=== PATIENT | female | born 1985 | race Caucasian/White ===

== ENCOUNTER 2020-05-17 17:23 | Emergency (ER) | payer MEDICAID ==
[2020-05-17] MEDS ORDERED: Sodium Chloride 0.9% 10 ML Syringe FLUSH PRN (18:29)
[2020-05-17] MEDS ORDERED: Sodium Chloride 0.9% 2.5 ML Syringe FLUSH PRN (18:29)
[2020-05-17] MEDS ORDERED: Sodium Chloride 0.9% 1,000 ML IV ONE (18:29)
[2020-05-17] MEDS ORDERED: Ketorolac 15 MG/ML SDV IVPUSH ONE (18:29)
[2020-05-17] MEDS ORDERED: Ketorolac 30 MG/ML SDV ONE (18:52)
[2020-05-17] MEDS ORDERED: Ketorolac 30 MG/ML SDV IVPUSH STA (18:53)
--- NOTE | 2020-05-17 18:57 | CR ---
Indication: Sore throat. Fever. Technique: AP portable view of the chest. Comparison: None Findings: The heart is normal in size. The lungs are clear. No infiltrate, pleural effusion, or pneumothorax is identified. Impression: No acute cardiopulmonary process Dictated by Rossy Butler MD @ May 17 2020 6:53PM Signed by Dr. Rossy Butler @ May 17 2020 6:56PM
[2020-05-17 19:01] LABS: BLOOD UREA NITROGEN,BUN 13 mg/dL (7.0-18.0); CARBON DIOXIDE,CO2 29.5 mmol/L (21.0-32.0); CHLORIDE,CL 104 mmol/L (98-107); GLUCOSE RANDOM 85 mg/dL (74-106); POTASSIUM,K 3.8 mmol/L (3.5-5.1); SODIUM,NA 140 mmol/L (136-145)
--- NOTE | 2020-05-17 19:43 | EDM.PDOC ---
ED HPI GENERAL MEDICAL PROBLEM - General Chief Complaint: Fever Stated Complaint: NOT FEELING WELL Time Seen by Provider: 05/17/20 18:27 - History of Present Illness INITIAL COMMENTS - FREE TEXT/NARRATIVE: HISTORY AND PHYSICAL: History of present illness: This is a 35-year-old female with no significant past medical history who presents ER today secondary to generalized malaise, body aches, fevers, green productive cough, decreased appetite, loss of taste and smell x2 to 3 days. Patient reports that she has been tolerating p.o. liquid without difficulty. Patient denies any vomiting or diarrhea. Patient denies any pain in her abdomen chest or back. Patient denies any flank tenderness. Patient has any dysuria, frequency, urgency. Patient has a hematuria. Patient has not hemoptysis. Review of systems: As per history of present illness and below otherwise all systems reviewed and negative. Past medical history: As per history of present illness and as reviewed below otherwise noncontributory. Surgical history: As per history of present illness and as reviewed below otherwise noncontributory. Social history: No reported history of drug or alcohol abuse. Family history: As per history of present illness and as reviewed below otherwise noncontributory. Physical exam: Constitutional: Patient is oriented to person, place, and time. Appears well- developed and well-nourished. No distress. HEENT: Moist mucous membranes, neck supple, no nuchal rigidity, no photophobia, no Kernig's sign or Brudzinski sign, patient does not present with signs or symptoms of be consistent with meningitis. Oropharynx clear without any exudates erythema Head: Normocephalic and atraumatic Eyes: Right eye exhibits no discharge. Left eye exhibits no discharge. No scleral icterus Neck: Normal range of motion. No tracheal deviation present. Cardiovascular: Normal rate and regular rhythm. Pulmonary: Effort normal, no respiratory distress. Abd: Soft, nondistended, no rebound/guarding, no psoas or obturator signs, no tenderness at Mcberney's point, no Aguirre's sign. Pt does not present with an exam that would be consistent with an acute surgical abdomen at this time, nontender to palpation Musculoskeletal: Normal range of motion Neurologic: Alert and oriented to person, place and time. Skin: Export, warm and dry. Psychiatric: Normal mood and affect. Behavior is normal. Judgment and thought content normal. Nursing note and vital signs have been reviewed Diagnostics: Chest Xray: Normal cardiac silhouette No infiltrates or effusions identified. No PTX No evidence of acute bony fracture. 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 Patient's chest x-ray does not reveal any acute pathology. Patient's pulse ox is 98% on room air. Patient's coronavirus test is pending. Patient is nontoxic-appearing with normal vital signs. Patient's coronavirus test is positive. Patient is clinically hemodynamically stable for discharge to home. Patient's pulse ox is 96 to 98% on room air. Patient do not appear to be in any resp iratory distress. I have discussed with the patient her test results and need for quarantine. 1. Your COVID-19 screening is positive. That means you do have the coronavirus and you are considered contagious. Your vital signs and oxygen saturation are well enough that you were able to monitor your symptoms at home. Continue to monitor for trouble breathing, new confusion or inability to arouse, bluish lips or face or any of the other symptoms we discussed -if this occurs please return to the emergency room. 2. Please self quarantine over the next 10 days. Inform any persons that you have been in contact with since you started becoming symptomatic that you have tested positive; they should be made aware and take the appropriate steps as needed. 3. You can take NyQuil during the evening to help get a restful night sleep. May alternate Tylenol and ibuprofen as needed for pain and fever management. 4. [facility] will be calling you and following up with you. The [place] COVID 19 Hotline phone number , They are open Monday - Monday 7am - 7pm. Follow up with your primary care provider for re-evaluation and re-testing after the 10 day quarantine and discuss when you should be seen. Definitive disposition and diagnosis as appropriate pending reevaluation and review of above. - Related Data Allergies Allergy/AdvReac Type Severity Reaction Status Date / Time No Known Allergies Allergy Verified 05/17/20 18:11 Home Meds: Home Meds Citalopram Hydrobromide [Celexa] 20 mg PO 05/17/20 [History] hydrOXYzine pamoate [Vistaril] 1 cap PO BEDTIME 05/17/20 [History] hydrOXYzine pamoate [Vistaril] 1 cap TID PRN 05/17/20 [History] Past Medical History - Past Health History Medical/Surgical History: Denies Medical/Surgical History - Infectious Disease History Infectious Disease History: Reports: Chicken Pox Other Infectious Disease History: Chicken pox as a child Social & Family History - Family History Family Medical History: Noncontributory - Tobacco Use Tobacco Use Status *Q: Never Tobacco User - Caffeine Use Caffeine Use: Reports: Coffee - Recreational Drug Use Recreational Drug Use: Yes Drug Use in Last 12 Months: Yes Recreational Drug Type: Reports: Marijuana/Hashish Recreational Drug Use Frequency: Rarely ED ROS GENERAL - Review of Systems Review Of Systems: See Below ED EXAM, GENERAL - Physical Exam Exam: See Below Course - Vital Signs Last Recorded V/S: Last Vital Signs Temp 97.5 F 05/17/20 18:16 Pulse 66 05/17/20 18:16 Resp 18 05/17/20 18:16 BP 109/70 05/17/20 18:16 Pulse Ox 96 05/17/20 18:16 - Orders/Labs/Meds Orders: Active Orders 24 hr Category Date Time Status CORONAVIRUS COVID-19 PCR PHL Stat Lab 05/17/20 19:15 Received Sodium Chloride 0.9% [Saline Flush] Med 05/17/20 18:29 Active 10 ml FLUSH ASDIRECTED PRN Sodium Chloride 0.9% [Saline Flush] Med 05/17/20 18:29 Active 2.5 ml FLUSH ASDIRECTED PRN Saline Lock Insert [OM.PC] Stat Oth 05/17/20 18:29 Ordered Medication Orders Sodium Chloride (Saline Flush) 10 ml FLUSH ASDIRECTED PRN PRN Reason: Keep Vein Open Sodium Chloride (Saline Flush) 2.5 ml FLUSH ASDIRECTED PRN PRN Reason: Keep Vein Open Labs: Laboratory Tests 05/17/20 05/17/20 05/17/20 Range/Units 18:36 18:36 18:36 WBC 3.15 L (4.0-11.0) K/uL RBC 4.50 (4.30-5.90) M/uL Hgb 13.1 (12.0-16.0) g/dL Hct 41.2 (36.0-46.0) % MCV 91.6 (80.0-98.0) fL MCH 29.1 (27.0-32.0) pg MCHC 31.8 (31.0-37.0) g/dL RDW Std Deviation 42.9 (28.0-62.0) fl RDW Coeff of Mary Jo 13 (11.0-15.0) % Plt Count 188 (150-400) K/uL MPV 9.10 (7.40-12.00) fL Neut % (Auto) 53.6 (48.0-80.0) % Lymph % (Auto) 38.4 (16.0-40.0) % [place] % (Auto) 6.7 (0.0-15.0) % Eos % (Auto) 1.0 (0.0-7.0) % Baso % (Auto) 0.3 (0.0-1.5) % Neut # (Auto) 1.7 (1.4-5.7) K/uL Lymph # (Auto) 1.2 (0.6-2.4) K/uL [place] # (Auto) 0.2 (0.0-0.8) K/uL Eos # (Auto) 0.0 (0.0-0.7) K/uL Baso # (Auto) 0.0 (0.0-0.1) K/uL Nucleated RBC % 0.0 /100WBC Nucleated RBCs # 0 K/uL Sodium 140 (136-145) mmol/L Potassium 3.8 (3.5-5.1) mmol/L Chloride 104 (98-107) mmol/L Carbon Dioxide 29.5 (21.0-32.0) mmol/L BUN 13 (7.0-18.0) mg/dL Creatinine 0.9 (0.6-1.0) mg/dL Est Cr Clr Drug Dosing 69.66 mL/min Estimated GFR (MDRD) > 60.0 ml/min Glucose 85 (74-106) mg/dL Calcium 8.9 (8.5-10.1) mg/dL Total Bilirubin 0.4 (0.2-1.0) mg/dL AST 17 (15-37) IU/L ALT 26 (14-63) IU/L Alkaline Phosphatase 75 (46-116) U/L Total Protein 7.8 (6.4-8.2) g/dL Albumin 3.9 (3.4-5.0) g/dL Globulin 3.9 (2.6-4.0) g/dL Albumin/Globulin Ratio 1.0 (0.9-1.6) HCG, Qual NEGATIVE (NEG) SARS CoV-2 RNA Rapid GORAN (NEGATIVE) 05/17/20 Range/Units 19:15 WBC (4.0-11.0) K/uL RBC (4.30-5.90) M/uL Hgb (12.0-16.0) g/dL Hct (36.0-46.0) % MCV (80.0-98.0) fL MCH (27.0-32.0) pg MCHC (31.0-37.0) g/dL RDW Std Deviation (28.0-62.0) fl RDW Coeff of Mary Jo (11.0-15.0) % Plt Count (150-400) K/uL MPV (7.40-12.00) fL Neut % (Auto) (48.0-80.0) % Lymph % (Auto) (16.0-40.0) % [place] % (Auto) (0.0-15.0) % Eos % (Auto) (0.0-7.0) % Baso % (Auto) (0.0-1.5) % Neut # (Auto) (1.4-5.7) K/uL Lymph # (Auto) (0.6-2.4) K/uL [place] # (Auto) (0.0-0.8) K/uL Eos # (Auto) (0.0-0.7) K/uL Baso # (Auto) (0.0-0.1) K/uL Nucleated RBC % /100WBC Nucleated RBCs # K/uL Sodium (136-145) mmol/L Potassium (3.5-5.1) mmol/L Chloride (98-107) mmol/L Carbon Dioxide (21.0-32.0) mmol/L BUN (7.0-18.0) mg/dL Creatinine (0.6-1.0) mg/dL Est Cr Clr Drug Dosing mL/min Estimated GFR (MDRD) ml/min Glucose (74-106) mg/dL Calcium (8.5-10.1) mg/dL Total Bilirubin (0.2-1.0) mg/dL AST (15-37) IU/L ALT (14-63) IU/L Alkaline Phosphatase (46-116) U/L Total Protein (6.4-8.2) g/dL Albumin (3.4-5.0) g/dL Globulin (2.6-4.0) g/dL Albumin/Globulin Ratio (0.9-1.6) HCG, Qual (NEG) SARS CoV-2 RNA Rapid GORAN POSITIVE H (NEGATIVE) Meds: Medications Generic Name Dose Route Start Last Admin Trade Name Freq PRN Reason Stop Dose Admin Sodium Chloride 10 ml 05/17/20 18:29 Saline Flush FLUSH ASDIRECTED PRN Keep Vein Open Sodium Chloride 2.5 ml 05/17/20 18:29 Saline Flush FLUSH ASDIRECTED PRN Keep Vein Open Discontinued Medications Generic Name Dose Route Start Last Admin Trade Name Freq PRN Reason Stop Dose Admin Sodium Chloride 1,000 mls @ 999 mls/hr 05/17/20 18:29 05/17/20 18:58 Normal Saline IV 05/17/20 19:29 999 mls/hr .Bolus ONE Administration Ketorolac Tromethamine 15 mg 05/17/20 18:29 05/17/20 19:03 Toradol IVPUSH 05/17/20 18:30 Not Given ONETIME ONE Ketorolac Tromethamine 15 mg 05/17/20 18:53 05/17/20 18:59 Toradol IVPUSH 05/17/20 18:54 15 mg STAT STA Administration Ketorolac Tromethamine Confirm 05/17/20 18:52 05/17/20 18:59 Toradol Administered 05/17/20 18:53 Not Given Dose 30 mg .ROUTE .STK-MED ONE Departure - Departure Time of Disposition: 19:58 Disposition: Home, Self-Care 01 Clinical Impression: 2019 novel coronavirus disease (COVID-19) - Discharge Information Instructions: COVID-19 Frequently Asked Questions, COVID-19, COVID-19: How to Protect Yourself and Others - [facility] [place] 2], Prevent the Spread of COVID-19 if You Are Sick - [facility] [place] 2] Referrals: Citlalli Oliver DO [Primary Care Provider] - Forms: ED Department Discharge Additional Instructions: Your seen and evaluated in the ER today secondary to symptoms are consistent with coronavirus. Your coronavirus test is positive. Your x-ray does not reveal any evidence of pneumonia. Your oxygen level is between 96 to 98% which is normal. 1. Your COVID-19 screening is positive. That means you do have the coronavirus and you are considered contagious. Your vital signs and oxygen saturation are well enough that you were able to monitor your symptoms at home. Continue to monitor for trouble breathing, new confusion or inability to arouse, bluish lips or face or any of the other symptoms we discussed -if this occurs please return to the emergency room. 2. Please self quarantine over the next 10 days. Inform any persons that you have been in contact with since you started becoming symptomatic that you have tested positive; they should be made aware and take the appropriate steps as needed. 3. You can take NyQuil during the evening to help get a restful night sleep. May alternate Tylenol and ibuprofen as needed for pain and fever management. 4. [facility] will be calling you and following up with you. The [place] COVID 19 Hotline phone number , They are open Monday - Monday 7am - 7pm. Follow up with your primary care provider for re-evaluation and re-testing after the 10 day quarantine and discuss when you should be seen. The following information is given to patients seen in the emergency department who are being discharged to home. This information is to outline your options for follow-up care. We provide all patients seen in our emergency department with a follow-up referral. The need for follow-up, as well as the timing and circumstances, are variable depending upon the specifics of your emergency department visit. If you don't have a primary care physician on staff, we will provide you with a referral. We always advise you to contact your personal physician following an emergency department visit to inform them of the circumstance of the visit and for follow-up with them and/or the need for any referrals to a consulting specialist. The emergency department will also refer you to a specialist when appropriate. This referral assures that you have the opportunity for follow-up care with a specialist. All of these measure are taken in an effort to provide you with optimal care, which includes your follow-up. Under all circumstances we always encourage you to contact your private physician who remains a resource for coordinating your care. When calling for follow-up care, please make the office aware that this follow-up is from your recent emergency room visit. If for any reason you are refused follow-up, please contact the [facility] Emergency Department at and asked to speak to the emergency department charge nurse. [facility] [address] [place] [id number] [address] [address] Sepsis Event Note (ED) - Evaluation Sepsis Screening Result: No Definite Risk - Focused Exam Vital Signs: Vital Signs Temp Pulse Resp BP Pulse Ox 05/17/20 18:16 97.5 F 66 18 109/70 96
== END 2020-05-17 20:21 | disposition home or self-care (01) ==
LOC: MERGE 17:23 → MW.ED 17:23
DX: U07.1 COVID-19 (principal)
CPT/HCPCS: 36415; 71045; 80053; 84703; 85025; 87635; 96374; 99283; J1885; J7030; U0002

== ENCOUNTER 2021-03-29 17:18 | Emergency (ER) | payer MEDICAID ==
--- NOTE | 2021-03-29 18:28 | EDM.PDOC ---
ED HPI GENERAL MEDICAL PROBLEM - General Chief Complaint: Back Pain or Injury Stated Complaint: NECK PAIN Time Seen by Provider: 03/29/21 17:27 Source of Information: Reports: Patient History Limitations: Reports: No Limitations - History of Present Illness INITIAL COMMENTS - FREE TEXT/NARRATIVE: HISTORY AND PHYSICAL: History of present illness: Patient is a 36-year-old female who presents emergency room today with concern of right neck muscle spasm that has been going on and off since December. Patient states that she first had this occur back in December after she rode on the am usement rides and states that she developed a right-sided neck muscle spasm and stiffness. Patient states that at that time, she went and got a formal massage and states that this did help her symptoms. Patient states that since then, she has continued to have random days of feeling like she "slept wrong "and states that the spasm comes back and continues. Patient denies any direct trauma or in jury to the area but states that she has pain with looking to the left but is able to look to the right completely without any issues. Patient states that she had tried to massage the area again, however, this time it was much more painful so was not able to tolerate the massage. Patient states that she has not taken anything for her symptoms. Patient states that she has a history of tubal ligation so does not believe to be . Patient states she noticed today that she also has a swollen lymph node of her neck and is unsure if this is related or not so came to the emergency room for further evaluation. Patient denies any other symptoms or concerns. Patient denies fever, chills, chest pain, shortness of breath, or cough. Denies headache, change in vision, syncope, or near syncope. Denies nausea, vomiting, abdominal pain, diarrhea, constipation, or dysuria. Has not noted any blood in urine or stool. Patient has been eating and drinking appropriately. Review of systems: As per history of present illness and below otherwise all systems reviewed and negative. Past medical history: As per history of present illness and as reviewed below otherwise noncontributory. Surgical history: As per history of present illness and as reviewed below otherwise noncontributory. Social history: See social history for further information Family history: As per history of present illness and as reviewed below otherwise noncontributory. Physical exam: General: Patient is alert, oriented, and in no acute distress. Patient sitting comfortably on exam table. Vitals stable and reviewed by me. HEENT: Patient does have a pea size mobile and tender lymph node of her right sided supraclavicular area. Otherwise, atraumatic, normocephalic, pupils equal and reactive bilaterally, negative for conjunctival pallor or scleral icterus, mucous membranes moist, TMs normal bilaterally, throat clear, neck supple, nontender, trachea midline. No drooling or trismus noted. No meningeal signs. No hot potato voice noted. Lungs: Clear to auscultation, breath sounds equal bilaterally, chest nontender. Heart: S1S2, regular rate and rhythm without overt murmur Abdomen: Soft, nondistended, nontender. Negative for masses or hepatosplenomegaly. Negative for costovertebral tenderness. Pelvis: Stable nontender. Genitourinary: Deferred. Rectal: Deferred. Skin: Intact, warm, dry. No lesions or rashes noted. Extremities/musculoskeletal: No obvious deformity of the complete spine. No step-offs, crepitus, or pain to palpation of the complete spine. Patient does have recreation of her pain and discomfort with palpation of the right sided trapezius muscle and the right sided trapezius muscle is more firm than the left sided in comparison. Patient is fully able to look to the right and up without pain or difficulty but does have pain of her trapezius muscle with looking to the left. Patient has full range of motion of her thoracic and lumbar spine without pain or difficulty. Negative Kernig and Brudzinski sign. Otherwise, atraumatic, negative for cords or calf pain. Neurovascular unremarkable. Neuro: Awake, alert, oriented. Cranial nerves II through XII unremarkable. Cerebellum unremarkable. Motor and sensory unremarkable throughout. Exam nonfocal. Notes: Patient is a 36-year-old female who presents emergency room today with concern of right-sided neck spasm and a swollen lymph node. Patient noted a swollen lymph node today but states that she has been having the neck spasm for the past several months off and on. On arrival to the ED, patient is vitally stable and well-appearing on exam but does have pain to palpation of her right sided trapezius muscle which is more firm than the left sided. Patient is fully able to look to the right but does have limited range of motion of her neck looking to the left but otherwise has full range of motion of the complete spine patient is afebrile and has been having this pain off and on for the past several months with recreation of her discomfort with massage of the right sided trapezius muscle. Patient also noted to have a small painful lymphadenopathy of the right supraclavicular area which at this time is nonspecific. I did offer basic lab work to patient, however, she declines at this time. All risks versus benefits discussed with patient expresses understanding. Strict return precautions thoroughly discussed with patient. Discussed importance for follow-up with a primary care provider. Voices understanding and is agreeable to plan of care. Denies any further questions or concerns at this time. Diagnostics: None Therapeutics: None Prescription: Flexeril, diclofenac Impression: Trapezius muscle spasm, right Lymphadenopathy, unspecified Plan: 1. Rest, heat the affected area. You can apply heat 15 minutes on, 15 minutes off. 2. Tylenol as directed for pain management or discomfort. Otherwise take pain medications as prescribed. 3. Follow up with the primary care provider as discussed. Return to the ED as needed and as discussed. Definitive disposition and diagnosis as appropriate pending reevaluation and review of above. - Related Data Allergies Allergy/AdvReac Type Severity Reaction Status Date / Time No Known Allergies Allergy Verified 05/18/20 09:10 Home Meds: Home Meds Citalopram Hydrobromide [Celexa] 20 mg PO 05/17/20 [History] hydrOXYzine pamoate [Vistaril] 1 cap PO BEDTIME 05/17/20 [History] hydrOXYzine pamoate [Vistaril] 1 cap TID PRN 05/17/20 [History] Amphetamine/Dextroamphetamine [Adderall] 10 mg PO DAILY 03/29/21 [History] Citalopram Hydrobromide [Celexa] 10 mg PO DAILY 03/29/21 [History] Cyclobenzaprine [Flexeril] 10 mg PO TID PRN #9 tab 03/29/21 [Rx] Diclofenac Sodium [Voltaren] 75 mg PO BIDMEALS PRN #15 tab.cr 03/29/21 [Rx] hydrOXYzine pamoate [Vistaril] 25 mg PO BEDTIME 03/29/21 [History] Past Medical History - Past Health History Medical/Surgical History: Denies Medical/Surgical History Psychiatric History: Reports: ADHD - Infectious Disease History Infectious Disease History: Reports: Chicken Pox Other Infectious Disease History: Chicken pox as a child Social & Family History - Family History Family Medical History: No Pertinent Family History - Tobacco Use Tobacco Use Status *Q: Never Tobacco User - Caffeine Use Caffeine Use: Reports: None - Recreational Drug Use Recreational Drug Use: No ED ROS GENERAL - Review of Systems Review Of Systems: Comprehensive ROS is negative, except as noted in HPI. ED EXAM, GENERAL - Physical Exam Exam: See Below (see dictation) Course - Vital Signs Last Recorded V/S: Last Vital Signs Temp 96.9 F 03/29/21 17:30 Pulse 80 03/29/21 18:39 Resp 16 03/29/21 18:39 BP 115/71 03/29/21 17:30 Pulse Ox 97 03/29/21 18:39 Departure - Departure Time of Disposition: 18:27 Disposition: Home, Self-Care 01 Clinical Impression: Lymphadenopathy, Trapezius muscle spasm - Discharge Information Prescriptions: Cyclobenzaprine [Flexeril] 10 mg PO TID PRN #9 tab PRN Reason: Spasms Diclofenac Sodium [Voltaren] 75 mg PO BIDMEALS PRN #15 tab.cr PRN Reason: Pain Instructions: Muscle Cramps and Spasms, Lymphadenopathy Referrals: Citlalli Oliver DO [Primary Care Provider] - Forms: ED Department Discharge Additional Instructions: The following information is given to patients seen in the emergency department who are being discharged to home. This information is to outline your options for follow-up care. We provide all patients seen in our emergency department with a follow-up referral. The need for follow-up, as well as the timing and circumstances, are variable depending upon the specifics of your emergency department visit. If you don't have a primary care physician on staff, we will provide you with a referral. We always advise you to contact your personal physician following an emergency department visit to inform them of the circumstance of the visit and for follow-up with them and/or the need for any referrals to a consulting specialist. The emergency department will also refer you to a specialist when appropriate. This referral assures that you have the opportunity for follow-up care with a specialist. All of these measure are taken in an effort to provide you with optimal care, which includes your follow-up. Under all circumstances we always encourage you to contact your private physician who remains a resource for coordinating your care. When calling for follow-up care, please make the office aware that this follow-up is from your recent emergency room visit. If for any reason you are refused follow-up, please contact the [facility] Emergency Department at and asked to speak to the emergency department charge nurse. [facility] [address] [place] [id number] [facility] [address] [place] [id number] 1. Rest, heat the affected area. You can apply heat 15 minutes on, 15 minutes off. 2. Tylenol as directed for pain management or discomfort. Otherwise take pain medications as prescribed. 3. Follow up with the primary care provider as discussed. Return to the ED as needed and as discussed. Sepsis Event Note (ED) - Evaluation Sepsis Screening Result: No Definite Risk - Focused Exam Vital Signs: Vital Signs Temp Pulse Resp BP Pulse Ox 03/29/21 18:39 80 16 97 03/29/21 17:30 96.9 F 63 18 115/71 99
== END 2021-03-29 18:39 | disposition home or self-care (01) ==
LOC: MW.ED 17:18
DX: M62.838 Other muscle spasm (principal); R59.0 Localized enlarged lymph nodes
CPT/HCPCS: 99283

== ENCOUNTER 2022-12-08 14:26 | Emergency (ER) | payer SELFPAY | END 2022-12-08 15:21 | disposition home or self-care (01) | LOC: MW.ED 14:26 | DX: F41.9 Anxiety disorder, unspecified (principal) | CPT/HCPCS: 99283; 99284 ==

== ENCOUNTER 2023-01-25 16:09 | Emergency (ER) | payer SELFPAY ==
[2023-01-25] MEDS ORDERED: Lidocaine 4% 1 each Patch TOP STA (17:06)
[2023-01-25] MEDS ORDERED: Methocarbamol 750 MG TAB PO STA (17:07)
[2023-01-25] MEDS ORDERED: Diazepam 5 MG Tab PO ONE (17:30)
== END 2023-01-25 18:33 | disposition home or self-care (01) ==
LOC: MW.ED 16:09
DX: M25.552 Pain in left hip (principal); Z79.899 Other long term (current) drug therapy
CPT/HCPCS: 73502; 99283; A9270

== ENCOUNTER 2023-03-05 15:41 | Emergency (ER) | payer OTHER | END 2023-03-05 16:48 | disposition left against medical advice (07) | LOC: MW.ED 15:41 | DX: Z53.21 Procedure and treatment not carried out due to patient leaving prior to being seen by health care provider (principal) ==

== ENCOUNTER 2023-03-05 20:12 | Emergency (ER) | payer OTHER | END 2023-03-05 22:45 | disposition home or self-care (01) | LOC: MW.ED 20:12 | DX: M25.561 Pain in right knee (principal); Z79.899 Other long term (current) drug therapy | CPT/HCPCS: 73562-26-RT; 73562-RT; 99283 ==

== ENCOUNTER 2023-12-09 14:44 | Emergency (ER) | payer SELFPAY ==
[2023-12-09 15:00] LABS: BILIRUBIN,URINE NEGATIVE (NEGATIVE); COLOR,URINE YELLOW; GLUCOSE,URINE NEGATIVE (NEGATIVE); KETONES,URINE NEGATIVE (NEGATIVE); LEUKOCYTE ESTERASE,URINE MODERATE (NEGATIVE); NITRITE,URINE POSITIVE (NEGATIVE); OCCULT BLOOD,URINE LARGE (NEGATIVE); PROTEIN,URINE 100 mg/dL (NEGATIVE)
[2023-12-09 15:01] LABS: APPEARANCE,URINE HAZY
[2023-12-09 15:08] LABS: BACTERIA,URINE 1+ (NEGATIVE); EPITHELIAL CELLS,URINE OCCASIONAL (NONE-FEW); WBC,URINE 60-70 (0-5/HPF)
[2023-12-09] MEDS: Phenazopyridine 200 MG Tab PO ONE (15:41)
[2023-12-09] MEDS: cefTRIAXone 1 GM Vial IM ONE (15:41)
[2023-12-09] MEDS: Lidocaine 1% PF 2 ML SDV INJECT ONE (15:42)
[2023-12-09] MEDS: Acetaminophen/HYDROcodone 325-5 MG Tab PO ONE (15:59)
== END 2023-12-09 16:00 | disposition home or self-care (01) ==
LOC: MW.ED 14:44
DX: N30.01 Acute cystitis with hematuria (principal); Z75.8 Other problems related to medical facilities and other health care; Z79.899 Other long term (current) drug therapy
CPT/HCPCS: 81001; 87086; 96372; 99283; A9270; J0696; 87088; 87186; J3490

== ENCOUNTER 2024-03-31 22:42 | Emergency (ER) | payer OTHER, BC, MEDICAID ==
[2024-03-31] MEDS: Acetaminophen 500 MG Tab PO ONE (23:09)
[2024-03-31] MEDS: diphenhydrAMINE 50 MG/ML SDV IVPUSH ONE (23:21)
[2024-03-31] MEDS: Sodium Chloride 0.9% 10 ML Syringe FLUSH PRN (23:21)
[2024-03-31] MEDS: Sodium Chloride 0.9% 1,000 ML IV ONE (23:21)
[2024-03-31] MEDS: Prochlorperazine 10 MG/2 ML SDV IVPUSH ONE (23:21)
== END 2024-04-01 00:28 | disposition home or self-care (01) ==
LOC: MW.ED 22:42
DX: M25.552 Pain in left hip (principal); G43.909 Migraine, unspecified, not intractable, without status migrainosus; F41.9 Anxiety disorder, unspecified; V87.7XXA Person injured in collision between other specified motor vehicles (traffic), initial encounter
CPT/HCPCS: 73502; 81025; 96374; 96375; 99284; A9270; J0780; J1200; J3490; J7030